=== PATIENT | female | born 1945 | race Caucasian/White ===

== ENCOUNTER 2016-12-20 08:47 | Outpatient (CLI) | payer MEDICARE, OTHER ==
[2016-02-29 20:52] VITALS: BP 162/62
[2016-12-20 09:37] LABS: BASOPHILS % 0.4 (0.0-1.5); LYMPHOCYTES # 1.1 # k/uL (0.6-4.0); MEAN CORPUSCULAR HEMOGLOBIN 30.4 pg (28.0-34.0); MONOCYTES # 0.2 # k/uL (0.0-0.9); MONOCYTES % 6.8 % (0.0-11.0)
[2016-12-20 10:07] LABS: eGFR (African) > 60; eGFR (Non-African) > 60
== END 2016-12-20 08:50 ==
LOC: LAB 08:47
PROVIDERS: ATTEND Family Medicine
DX: D64.9 Anemia, unspecified (principal); I10 Essential (primary) hypertension
CPT/HCPCS: 36415; 80053; 80061; 83540; 85025

== ENCOUNTER 2017-10-20 08:28 | Outpatient (CLI) | payer MEDICARE, OTHER ==
[2016-02-29 20:52] VITALS: BP 162/62
[2017-10-20 09:24] LABS: eGFR (African) > 60; eGFR (Non-African) > 60
== END 2017-10-20 08:30 ==
LOC: LAB 08:28
PROVIDERS: ATTEND Family Medicine
DX: E78.00 Pure hypercholesterolemia, unspecified (principal); I10 Essential (primary) hypertension
CPT/HCPCS: 36415; 80053; 80061

== ENCOUNTER 2017-10-29 09:52 | Outpatient (CLI) | payer MEDICARE, OTHER ==
[2016-02-29 20:52] VITALS: BP 162/62
== END 2017-10-29 09:53 ==
LOC: RAD 09:52
PROVIDERS: ATTEND Family Medicine
DX: M81.0 Age-related osteoporosis without current pathological fracture (principal)
CPT/HCPCS: 77080

== ENCOUNTER 2018-01-02 10:29 | Outpatient (CLI) | payer MEDICARE, OTHER ==
[2016-02-29 20:52] VITALS: BP 162/62
== END 2018-01-02 10:30 ==
LOC: LAB 10:29
PROVIDERS: ATTEND Family Medicine
DX: J02.9 Acute pharyngitis, unspecified (principal)
CPT/HCPCS: 87070

== ENCOUNTER 2018-02-22 01:05 | Emergency (ER) | payer MEDICARE, OTHER ==
[2018-02-22] MEDS ORDERED: ASPIRIN 81 MG CHEW TAB PO ONE (01:20)
--- NOTE | 2018-02-22 01:20 | ED Physician Documentation ---
Chest Pain - HISTORIAN Historian: patient - HPI Stated Complaint: heartburn and "not feeling right" since 1244 Chief Complaint: Chest Pain Onset: minutes (30) Timing: gradual onset Duration: gradual Last known Well Date: 02/22/18 Last Known Well Time: 20:00 Last known Well Code/Unknown Code: Unknown Context: other (she states that she had this issue with "heartburn or chest pain " since 1244 - she also states she had heartburn before she went to bed this pm 9 pm ) Severity: mild Quality: indigestion, burning. denies: pressure, tightness, dull, aching, sharp , stabbing Chest Pain Radiation: no radiation Chest Pain Signs/Symptoms: nausea (before bed with heartburn ). denies: diaphoresis, dizziness, dyspnea Worsened By: denies: nothing Relieved By: denies: nothing - ROS CONST: none MS/LYMPH: none EYES/ENT: none SKIN/ENDO: none NEURO/PSYCH: none - PAST HX [place] risk factors: hypertension TAD/AAA risk factors: none Neuro deficit: none GI disease: GERD Lung disease: none Surgeries/Procedures: none Immunizations: UTD Allergies/Adverse Reactions: Allergies Allergy/AdvReac Type Severity Reaction Status Date / Time No Known Drug Allergies Allergy Verified 02/22/18 01:40 Home Medications: Ambulatory Orders Medication Instructions Recorded Aspirin [Akosua] 81 mg PO DAILY 02/29/16 Multivitamin [Tab-A-Rosalinda] 1 each PO DAILY 02/29/16 - SOCIAL HX Smoking History: non-smoker Alcohol Use: none Drug Use: none - FAMILY HX Family HX: none - VITAL SIGNS Vital Signs: Vital Signs Temp Pulse Resp BP Pulse Ox 162/62 02/29/16 20:41 - REVIEWED ASSESSMENTS Nursing Assessment Reviewed: Yes Vitals Reviewed: Yes Progress - Progress Progress: 0140: post nitro pain from 4 to 2 on 1/10 scale. DG 0150: pain is zero DG 0222: she has no pain. She feels good. Results discussed. She and have no questions. He did state that they did eat pizza before bed and he has an upset stomach DG ED Results Lab/Radiology - Radiology Radiology Impressions: Ap portable upright radiographs of the chest Clinical history: Chest pain Technique: anterior /posterior portable upright Findings: The lung holley are clear. The heart and mediastinal structures are normal. The bony thorax is unremarkable. No pneumothorax or pleural effusion is seen. Impression: No acute pulmonary disease Electronically signed on Feb 22, 2018 2:01:47 AM CDT by: Maulik Marrufo Chest Pain Physical Exam - EXAM General Appearance: no acute distress, alert EENT: eye inspection normal, ENT inspection normal Neck: nml inspection Respiratory: no resp. distress, chest non-tender, nml breath sounds, resp.distress CVS: reg. rate & rhythm, no murmur Abdomen: soft Skin: warm/dry, normal color Extremities: non-tender, normal range of motion, no evidence of injury, no edema Neuro: oriented X3, CN's nml as tested, motor nml, sensation nml, mood/affect nml, cognition normal Discharge Clincal Impression: Reflux esophagitis Chest pain Qualifiers: Chest pain type: other chest pain Qualified Code(s): R07.89 - Other chest pain Referrals: Jon Maxwell MD [Primary Care Provider] - 2 Days Comments: 1. zantac 150 mg BID 2. bland diet 3. No spicy foods prior to bed 4. Return to PCP in 4-6 days for eval of reflux 5. Return to ER for any increasing concerns Condition: Stable Disposition: 01 HOME, SELF-CARE Decision to Admit: NO Date of Decison to Admit: 02/22/18 Decision Time: 02:29
[2018-02-22] MEDS ORDERED: NITROGLYCERIN 0.4 MG TAB.SUBL SL ONE (01:26)
[2018-02-22 01:38] LABS: BASOPHILS % 0.6 (0.0-1.5); EOSINOPHILS % 3.9 % (0.0-6.8); MEAN CORPUSCULAR HEMOGLOBIN 31.6 pg (28.0-34.0); MEAN CORPUSCULAR VOLUME 92.7 fl (80.0-100.0); MONOCYTES % 6.3 % (0.0-11.0); NEUTROPHILS # 3.7 # k/uL (1.4-7.7)
[2018-02-22] MEDS ORDERED: PANTOPRAZOLE SODIUM 40 MG in 0.9 % SODIUM CHLORIDE 50 ML IV ONE (01:44)
[2018-02-22] MEDS ORDERED: 0.9 % SODIUM CHLORIDE 1,000 ML IV ONE (01:45)
[2018-02-22] MEDS ORDERED: 0.9 % SODIUM CHLORIDE 100 ML IV ONE (01:49)
[2018-02-22] MEDS ORDERED: PANTOPRAZOLE SODIUM INJ. 40 MG VIAL ONE (01:49)
[2018-02-22 02:04] LABS: eGFR (African) > 60; eGFR (Non-African) > 60
--- NOTE | 2018-02-22 02:11 | Diagnostic Imaging Report ---
[facility] [address] [facility].[address] [id number] Report Submission Date: Feb 22, 2018 2:01:47 AM CDT Patient Study Name: RAYMOND AMARAL Date: Feb 22, 2018 1:46:29 AM CDT Modality Type: DX Gender: F Description: CHEST : 43 Institution: [facility] Physician: JOSE ALEJANDRO CONSTANTINO Ap portable upright radiographs of the chest Clinical history: Chest pain Technique: anterior /posterior portable upright Findings: The lung holley are clear. The heart and mediastinal structures are normal. The bony thorax is unremarkable. No pneumothorax or pleural effusion is seen. Impression: No acute pulmonary disease Electronically signed on Feb 22, 2018 2:01:47 AM CDT by: Maulik QUISPE
[2018-02-22 03:09] VITALS: BP 132/66
== END 2018-02-22 03:00 | disposition home or self-care (01) ==
LOC: ED 01:05
DX: R07.89 Other chest pain (principal); K21.0 Gastro-esophageal reflux disease with esophagitis
CPT/HCPCS: 71045; 80053; 82550; 82553; 84484; 85025; 93005; J7030; 96365; 99283; S1016